=== PATIENT | female | born 1995 | race Caucasian/White ===

== ENCOUNTER 2022-06-13 09:26 | Emergency (ER) | payer SELFPAY ==
--- NOTE | 2022-06-13 09:59 | ED.PSYCH ---
HPI - Psych General Chief Complaint: Anxiety Stated Complaint: ALTERED MENTAL STATUS Time Seen by Provider: 06/13/22 09:59 Source: patient Mode of arrival: EMS Limitations: other (under the influence) History of Present Illness MD complaint: substance abuse Onset (ago): day(s) (states she uses cocaine but she is more anxious because her boyfriend almost overdosed and today) Duration: intermittent History of same: Yes Relieving factors: none Context: significant life stressor (here with boyfriend who syncopized while using) Associated psychiatric symptoms: other (anxiety and she is hyperverbal talking to herself) Associated symptoms: denies other symptoms Treatments prior to arrival: none Related Data Allergies Allergy/AdvReac Type Severity Reaction Status Date / Time No Known Allergies Allergy Verified 06/13/22 10:13 Review of Systems Review of Systems: Constitutional : No Fever, No Chills ENT/Mouth : No Ear Pain, No Nasal Congestion, No sore throat Eyes: No Eye Pain, No Swelling, No Redness Cardiovascular : No Chest Pain, No SOB Respiratory : No Cough, No Sputum, No Dyspnea Gastrointestinal : No Nausea, No Vomiting, No Diarrhea, No Hematochezia, No Melena Genitourinary : No Dysuria, No Urinary Frequency, No Hematuria Musculoskeletal : No Myalgias Skin : No Skin Lesions, No rash Neuro : No Weakness, No Numbness, No Paresthesias, No Dizziness, No Headache Psych : positive Anxiety, no Depression, no SI/HI All other systems reviewed and are negative PMFSH Past Medical History Attestation statement: The following information was validated with the patient. Medical History Active substance abuse Social History Social History (Updated 06/13/22 @ 10:04 by Chen Cooper DO) Patient Tobacco Use Status: Tobacco use Unknown Substance Use Type: Crack/Cocaine Advance Directives: No Advance Directives Information Provided: No Patient : No Physical Exam Vital Signs: Vital Signs: Last Vital Signs Temp 98.2 F 06/13/22 10:59 Pulse 118 H 06/13/22 10:59 Resp 18 06/13/22 10:59 BP 144/81 H 06/13/22 10:59 Pulse Ox 98 06/13/22 10:59 O2 Del Method 06/13/22 10:59 BMI result Body Mass Index 22.3 Appearance: Alert. Oriented X3. anxious, talking to herself, pacing no acute distress. Eyes: Pupils equal, round and reactive to light. 3mm ENT: Pharynx normal. picked scabs on face Neck: Normal inspection. Neck supple. CVS: tachycardic heart rate and rhythm. Pulses normal. Respiratory: No respiratory distress. Breath sounds normal. Abdomen: Soft and nontender. Skin: Skin warm and dry. Normal skin color. Normal skin turgor. Extremities: No lower extremity edema. No calf ttp Neuro: Oriented X 3. No motor deficit. No sensory deficit. Course Course Course Narrative: awake alert oriented x 3, aware cocaine has fentanyl in it, declines detox, given narcan in her hand does not want SUDE myriam MDM - Psych MDM Narrative Medical decision making narrative: 27 yo female here with anxiety and signs of cocaine abuse - she is not SI, she is alert and oriented x 3 - will observe until more clear. Does not want detox at this time. Discharge Plan Discharge Clinical Impression: Cocaine abuse, Acute anxiety Patient Disposition: Home, Self-Care Instructions: Anxiety (ED), Cocaine Abuse (ED) Additional Instructions: return to ED for any worsening symptoms or concerns carry narcan with you your cocaine has fentanyl in it please do not use, stop using drugs
[2022-06-13 10:07] VITALS: BP 155/109; BP 160/111; PULSE 87; PULSE 96; RESP 16; TEMP 35.9; O2SAT 97; O2SAT 98; BMI 22.3
[2022-06-13] MEDS: LORazepam 1 MG TABLET PO (10:51)
[2022-06-13 10:59] VITALS: BP 144/81; PULSE 118; RESP 18; TEMP 36.8; O2SAT 98
== END 2022-06-13 12:25 | disposition home or self-care (01) ==
PROVIDERS: Emergency Provider Emergency Medicine
DX: F41.1 Generalized anxiety disorder (principal); F43.0 Acute stress reaction; F14.10 Cocaine abuse, uncomplicated; Z79.899 Other long term (current) drug therapy
CPT/HCPCS: 99283; 99284